=== PATIENT | female | born 1940 | race Two or more races ===

== ENCOUNTER 2020-04-04 11:48 | Outpatient (CLI) | payer OTHER | END 2020-04-04 11:53 | disposition home or self-care (01) | LOC: SONOGRAMA 11:48 | PROVIDERS: ATTEND Pathology Anatomic Pathology & Clinical Pathology | DX: E04.2 Nontoxic multinodular goiter (principal) ==

== ENCOUNTER 2021-01-01 07:11 | Outpatient (CLI) | payer OTHER | END 2021-01-01 07:17 | disposition home or self-care (01) | LOC: TOM 07:11 | PROVIDERS: ATTEND Internal Medicine Gastroenterology | DX: K63.5 Polyp of colon (principal); K57.90 Diverticulosis of intestine, part unspecified, without perforation or abscess without bleeding; R19.4 Change in bowel habit; D64.89 Other specified anemias ==